=== PATIENT | male | born 1985 | race American Indian/Alaskan Native ===

== ENCOUNTER 2017-07-17 11:37 | Emergency (ER) | payer OTHER ==
[2017-07-17 11:38] VITALS: BMI 41.1
[2017-07-17 12:03] VITALS: RESP 18; TEMP 98.2; O2SAT 100
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
--- NOTE | 2017-07-17 13:18 | RAD ---
PROCEDURE: Right and left hand x-ray, history: Trauma HISTORY: fall r/o fx COMPARISON: None available. TECHNIQUE: Three views of the left hand and three views of the right hand were performed for trauma. FINDINGS: There is evidence of a comminuted fracture of the proximal aspect of the right 5th metacarpal, although a portion may involve the proximal 4th metacarpal. Soft tissue swelling overlies this region. Fracture may extend to the carpometacarpal joint region. No other fractures are seen elsewhere in the left hand. No carpal bone widening is seen. Distal radius is intact. Phalanges are intact. No appreciable fractures are seen in the right hand or visualized wrist region. No dislocation is seen. Metacarpals are intact as well as the carpal bones. No carpal bone widening is seen in the right hand. IMPRESSION: Fracture of the proximal left 5th metacarpal possible small fracture of the proximal left 4th metacarpal. Fracture extends to the carpometacarpal joint region. Overlying soft tissue swelling. No other fractures elsewhere.
[2017-07-17 13:29] VITALS: BP 125/69; PULSE 79
--- NOTE | 2017-07-17 13:52 | RAD ---
PROCEDURE: Left wrist x-ray HISTORY: r/o fx COMPARISON: Left hand x-ray same day TECHNIQUE: Three views of the left wrist were performed. FINDINGS: There is evidence of a fracture with fragment overlying the proximal aspect of the left 4th and 5th proximal metacarpals. Fracture appears to probably originates from the proximal 5th metacarpal. Smaller fracture in the proximal 4th metacarpal is not excluded. Visualized carpal bones are intact. Navicular bone is intact. Distal radius is unremarkable. No abnormal carpal bone widening is appreciated. Mild soft tissue swelling is seen overlying the distal wrist and medial hand. IMPRESSION: Fracture of the proximal left 5th metacarpal. A smaller fracture of the proximal left 4th metacarpal is not excluded due to overlap.
== END 2017-07-17 14:30 | disposition home or self-care (01) ==
LOC: ED 11:37
DX: S62.307A Unspecified fracture of fifth metacarpal bone, left hand, initial encounter for closed fracture (principal); W22.01XA Walked into wall, initial encounter; I10 Essential (primary) hypertension; E78.5 Hyperlipidemia, unspecified; R73.03 Prediabetes; F17.210 Nicotine dependence, cigarettes, uncomplicated

== ENCOUNTER 2018-05-19 08:01 | Emergency (ER) | payer SELFPAY ==
[2018-05-19 08:02] VITALS: BMI 41.1
[2018-05-19 08:33] VITALS: RESP 18; TEMP 98.7
--- NOTE | 2018-05-19 09:07 | ED PDOC ---
Arrival/HPI - General Chief Complaint: Lower Extremity Problem/Injury Time Seen by Provider: 05/19/18 08:16 Historian: Patient - History of Present Illness Narrative History of Present Illness (Text): 05/19/18 08:56 32 year old male, whose past medical history includes achilles tendon rupture, hypertension, hyperlipidemia, and pre-diabetes, presents to the emergency room complaining of left ankle pain since yesterday. Patient states his ankle was swelling up and it hurts when he walks or rests his foot downward. He is concerned it may be related to his previous achilles tendon rupture. He also complains of secondary lumps underneath his armpits bilaterally. Patient denies fevers, chills, headache, dizziness, chest pain, shortness of breath, dyspnea on exertion, cough, abdominal pain, nausea, vomiting, diarrhea, back pain, neck pain, or any other complaint. PMD: Dr. Ravi Orthopedic: Dr. Pickett Time/Duration: 24 hours Symptom Onset: Gradual Symptom Course: Unchanged Activities at Onset: Light Context: Home Past Medical History - Provider Review Nursing Documentation Reviewed: Yes - Past History Past History: No Previous - Infectious Disease Hx of Infectious Diseases: None - Tetanus Immunization Tetanus Immunization: Unknown - Past Medical History Past Medical History: No Previous - Cardiac Hx Hypertension: Yes - Pulmonary Hx Asthma: Yes (In childhood.) - Neurological Hx Neurological Disorder: No - HEENT Hx HEENT Disorder: No - Renal Hx Renal Disorder: No - Endocrine/Metabolic Hx Endocrine Disorders: No - Hematological/Oncological Hx Blood Disorders: No - Integumentary Hx Dermatological Disorder: No - Musculoskeletal/Rheumatological Hx Falls: No - Gastrointestinal Hx Gastrointestinal Disorders: No Other/Comment: Feels Acid when goes to sleep. - Genitourinary/Gynecological Hx Genitourinary Disorders: No - Psychiatric Hx Psychophysiologic Disorder: No Hx Substance Use: No - Surgical History Other/Comment: achilles tendon repair - Anesthesia Hx Anesthesia: Yes Hx Anesthesia Reactions: No Hx Malignant Hyperthermia: No - Suicidal Assessment Feels Threatened In Home Enviroment: No Family/Social History - Physician Review Nursing Documentation Reviewed: Yes Family/Social History: No Known Family HX Smoking Status: Light Smoker < 10 Cigarettes Daily Hx Alcohol Use: Yes Frequency of alcohol use: Socially Hx Substance Use: No Hx Substance Use Treatment: No Allergies/Home Meds Allergies/Adverse Reactions: Allergies Penicillins Allergy (Intermediate, Verified 07/17/17 12:01) RASH amoxicillin Allergy (Verified 07/17/17 12:01) RASH Review of Systems - Physician Review All systems were reviewed & negative as marked: Yes - Review of Systems Constitutional: absent: Fevers Respiratory: absent: SOB, Cough Cardiovascular: absent: Chest Pain Gastrointestinal: absent: Abdominal Pain, Nausea, Vomiting Musculoskeletal: Other (left ankle pain and swelling). absent: Back Pain, Neck Pain Neurological: absent: Headache, Dizziness Physical Exam Vital Signs Reviewed: Yes Vital Signs Temp Pulse Resp BP Pulse Ox 05/19/18 08:02 98.7 F 81 18 138/84 96 Temperature: Afebrile Blood Pressure: Normal Pulse: Regular Respiratory Rate: Normal Appearance: Positive for: Well-Appearing, Non-Toxic, Comfortable Pain Distress: None Mental Status: Positive for: Alert and Oriented X 3 - Systems Exam Head: Present: Atraumatic, Normocephalic Pupils: Present: PERRL Extroacular Muscles: Present: EOMI Conjunctiva: Present: Normal Mouth: Present: Moist Mucous Membranes Neck: Present: Normal Range of Motion Respiratory/Chest: Present: Clear to Auscultation, Good Air Exchange. No: Respiratory Distress, Accessory Muscle Use Cardiovascular: Present: Regular Rate and Rhythm, Normal S1, S2. No: Murmurs Abdomen: No: Tenderness, Distention, Peritoneal Signs Back: Present: Normal Inspection Upper Extremity: Present: Normal Inspection. No: Cyanosis, Edema Lower Extremity: Present: NORMAL PULSES (pedal pulses intact), Normal ROM (able to doriflex and minimally plantar flex ), Swelling (swelling noted to the posterior ankle). No: Edema, Tenderness (no tenderness to palpation of the maleolus) Neurological: Present: GCS=15, CN II-XII Intact, Speech Normal Skin: Present: Warm, Dry, Normal Color. No: Rashes Psychiatric: Present: Alert, Oriented x 3, Normal Insight, Normal Concentration Medical Decision Making ED Course and Treatment: 05/19/18 08:56 Impression: 32 year old male who presents to the emergency department complaining of left ankle pain. Differential Diagnosis included but are not limited to: --Achilles tender rupture --Ankle fracture --Dislocation Plan: -- Labs -- Left ankle X-ray -- Reassess and disposition Prior Visits: Notes and results from previous visits were reviewed. Progress Notes: 05/19/18 10:[address] Pickett(orthopedic surgery) who would like to see the patient in his office today and would also like a copy of his X-ray as well. Patient updated on plan and will immediately present himself to Dr. Pickett's office after discharge with his film. He is stable for discharge. - Lab Interpretations Lab Results: Lab Results 05/19/18 09:35: POC Glucose (mg/dL) 148 H I have reviewed the lab results: Yes - RAD Interpretation Narrative RAD Interpretations (Text): 05/19/18 10:48 Ankle X-ray reviewed by radiologist, shows: IMPRESSION: No acute findings Radiology Orders: 05/19/18 08:56 ANKLE LEFT 3 VIEWS ROUTINE [RAD] Stat [employer] Equipment Mechanic: Radiologist - Scribe Statement The provider has reviewed the documentation as recorded by the Scribe Maisha To Provider Scribe Attestation: All medical record entries made by the Scribe were at my direction and personally dictated by me. I have reviewed the chart and agree that the record accurately reflects my personal performance of the history, physical exam, medical decision making, and the department course for this patient. I have also personally directed, reviewed, and agree with the discharge instructions and disposition. Disposition/Present on Arrival - Present on Arrival Any Indicators Present on Arrival: No History of DVT/PE: No History of Uncontrolled Diabetes: No Urinary Catheter: No History of Decub. Ulcer: No History Surgical Site Infection Following: None - Disposition Have Diagnosis and Disposition been Completed?: Yes Diagnosis: Ankle swelling Disposition: HOME/ ROUTINE Disposition Time: 10:46 Patient Plan: Discharge Condition: STABLE Discharge Instructions (ExitCare): Achilles Tendon Rupture Print Language: LUX[place]OURG[place] Additional Instructions: All medical record entries made by the Scribe were at my direction and personally dictated by me. I have reviewed the chart and agree that the record accurately reflects my personal performance of the history, physical exam, medical decision making, and the department course for this patient. I have also personally directed, reviewed, and agree with the discharge instructions and disposition. Please take the films to Dr. Pickett Referrals: Brendan Pickett DO [Staff Provider] - Follow up with primary Forms: [employer] (Tu[place]uan)
--- NOTE | 2018-05-19 10:43 | RAD ---
Date of service: 05/19/2018 PROCEDURE: Left Ankle Radiographs. HISTORY: ankle pain w/ h/o achielle's tendon rupure COMPARISON: None available. FINDINGS: BONES: There is an old fracture deformity of the distal tibia. JOINTS: Normal. No osteoarthritis. Ankle mortise maintained. Talar dome intact SOFT TISSUES: Normal. OTHER FINDINGS: None. IMPRESSION: No acute findings
[2018-05-19 11:05] VITALS: O2SAT 98
[2018-05-19 11:06] VITALS: BP 139/76; PULSE 80
== END 2018-05-19 11:07 | disposition home or self-care (01) ==
LOC: ED 08:01
DX: M79.89 Other specified soft tissue disorders (principal); I10 Essential (primary) hypertension; R73.03 Prediabetes; E78.5 Hyperlipidemia, unspecified; F17.210 Nicotine dependence, cigarettes, uncomplicated